=== PATIENT | female | born 1960 | race Caucasian/White ===

== ENCOUNTER → 2019-03-10 | Outpatient (CLI) | payer BC ==
--- NOTE | 2019-03-10 08:36 | US ---
EXAMINATION TYPE: US liver DATE OF EXAM: 03/10/2019 COMPARISON: US 2010 CLINICAL HISTORY: R94.5 abnormal liver function. Pt states elevated LFT's, pt has no other complaints at this time EXAM MEASUREMENTS: Liver Length: 22.7 cm Gallbladder Wall: 0.2 cm CBD: 0.5 cm Right Kidney: 11.3 x 5.6 x 5.3 cm Pancreas: wnl, tail obscured by overlying bowel gas Liver: There is increased echogenicity of the hepatic parenchyma with diminished visualization of th e portal triads most commonly relating to hepatic steatosis and limiting evaluation for underlying he patic masses. There is probable fatty sparing near the gallbladder fossa. This is a typical location for focal fatty sparing Gallbladder: wnl Evidence for sonographic Gipson's sign: No CBD: wnl Right Kidney: wnl IMPRESSION: Findings most compatible with hepatic steatosis as demonstrated on the ultrasound of 2010 with probable focal fatty sparing near the gallbladder fossa.
== END | disposition home or self-care (01) ==
LOC: RADUSWWP 07:43
PROVIDERS: ATTEND Internal Medicine
DX: R94.5 Abnormal results of liver function studies (principal)
CPT/HCPCS: 76705

== ENCOUNTER → 2019-06-24 | Outpatient (CLI) | payer OTHER ==
--- NOTE | 2019-06-24 16:03 | XR ---
EXAMINATION TYPE: XR chest 2V DATE OF EXAM: 06/24/2019 COMPARISON: Prior chest x-ray 07/01/2011 HISTORY: Pain in left shoulder, cirrhosis, history of histoplasmosis, clinical trial TECHNIQUE: Frontal and lateral views of the chest are obtained. FINDINGS: There is no focal air space opacity, pleural effusion, or pneumothorax seen. The cardiac silhouette size is within normal limits. The osseous structures are intact. IMPRESSION: No acute cardiopulmonary process. Stable exam.
== END ==
LOC: RADXRMAIN 13:13
PROVIDERS: ATTEND Dermatology MOHS-Micrographic Surgery
DX: Z01.818 Encounter for other preprocedural examination (principal)
CPT/HCPCS: 71046